=== PATIENT | male | born 1960 | race Caucasian/White ===

== ENCOUNTER 2017-11-19 01:35 | Emergency (ER) | payer BC ==
[~2017-11-19] VITALS: Ht 177.8 cm; Wt 86.4 kg
[~2017-11-19 01:35] MED LIST: DEXILANT30 MG PO; FLOMAX 0.40.4 MG/CAP PO; PERCOCET 325 MG1 TA2 PO
[2017-11-19 01:40] VITALS: BP 118/73; PULSE 65; TEMP 98.1
== END 2017-11-19 01:49 | disposition left against medical advice (07) ==
LOC: COL.ER 01:35
DX: H53.8 Other visual disturbances (principal)

== ENCOUNTER 2019-03-06 14:23 | Emergency (ER) | payer BC ==
[~2019-03-06] VITALS: Ht 177.8 cm; Wt 84.1 kg
[2019-03-06 14:35] VITALS: BP 132/73; TEMP 97.9
[2019-03-06] MEDS ORDERED: CEPHALEXIN500 M1 PO (16:10)
[2019-03-06 16:17] VITALS: PULSE 73
== END 2019-03-06 16:21 | disposition home or self-care (01) ==
LOC: COL.ER 14:23
DX: S61.215A Laceration without foreign body of left ring finger without damage to nail, initial encounter (principal); K21.9 Gastro-esophageal reflux disease without esophagitis; Z23 Encounter for immunization; W26.8XXA Contact with other sharp object(s), not elsewhere classified, initial encounter; Y92.009 Unspecified place in unspecified non-institutional (private) residence as the place of occurrence of the external cause

== ENCOUNTER 2021-10-14 18:26 | Emergency (ER) | payer BC ==
[~2021-10-14] VITALS: Ht 177.8 cm; Wt 84.1 kg
[~2021-10-14 18:26] MED LIST changes: +CEPHALEXIN500 M1 PO
[2021-10-14 18:41] VITALS: TEMP 98.3
[2021-10-14 19:24] LABS: COLLECTION METHOD CLEAN CATCH
[2021-10-14 19:30] LABS: BASO # 0.1 K/mm3 (0.0-0.2); BASO % 0.5 % (0.0-2.0); EOS # 0.2 K/mm3 (0.0-0.7); EOS % 1.6 % (0.0-4.0); GRAN # 7.5 K/mm3 (1.4-6.5); GRAN % 75.1 % (42.2-75.2); HEMATOCRIT 44.4 % (42.0-52.0); HEMOGLOBIN 15.1 g/dl (13.5-18.0); LYMPH # 1.7 K/mm3 (1.2-3.4); MEAN CELL VOLUME 87 fl (80.0-100.0); MEAN CORPUSCULAR HEMOGLOBIN 30 pg (27-31); MEAN CORPUSCULAR HGB CONC 34 g/dl (33.0-37.0); MEAN PLATELET VOLUME 10.9 fl (7.4-10.4); MONO # 0.6 K/mm3 (0.1-0.6); MONO % 5.5 % (1.7-9.3); PLATELET COUNT 210 K/mm3 (130-400); REDCELL DISTRIBUTION WIDTH-CV 12.2 % (11.5-14.5)
[2021-10-14 19:33] LABS: MUCOUS Present (NOT PRESENT); PH 6 (5-8); SQUAMOUS EPITHELIAL None Seen /hpf (0-10); URINE APPEARANCE Clear (CLEAR/HAZY); URINE BACTERIA None Seen /hpf (NONE SEEN); URINE BILIRUBIN Negative (NEGATIVE); URINE BLOOD 2+ (NEGATIVE); URINE COLOR Yellow (YELLOW); URINE GLUCOSE Negative (NEGATIVE); URINE KETONE Trace (NEGATIVE); URINE LEUKOCYTE ESTERASE Negative (NEGATIVE); URINE NITRATE Negative (NEGATIVE); URINE PROTEIN(semi-quant) Negative (NEGATIVE); URINE RBC 20-50 /hpf (0-2); URINE UROBILINOGEN Negative (NEGATIVE)
[2021-10-14 20:02] LABS: ALBUMIN 4.7 gm/dL (3.5-5.0); BILIRUBIN,TOTAL 0.5 mg/dL (0.2-1.2); C-REACTIVE PROTEIN 0.1 mg/dL (0.00-0.50); CALCIUM 9.1 mg/dL (8.4-10.2); CREATININE, serum 1.31 mg/dL (0.72-1.25); POTASSIUM 3.9 mmol/L (3.5-4.5); TOTAL PROTEIN 7.5 gm/dL (6.2-8.1)
[2021-10-14] MEDS ORDERED: FLOMAX 0.40.4 MG/CAP PO (21:14)
[2021-10-14] MEDS ORDERED: ZOFRAN ODT4 MG PO (21:14)
[2021-10-14] MEDS ORDERED: PERCOCET 325 MG1 TA2 PO (21:14)
[2021-10-14 21:45] VITALS: BP 118/67; PULSE 77
== END 2021-10-14 21:45 | disposition home or self-care (01) ==
LOC: COL.ER 18:26
PROVIDERS: Nurse Practitioner
DX: N13.2 Hydronephrosis with renal and ureteral calculous obstruction (principal)
CPT/HCPCS: J1170; J1885; J2405; J7030; Q9967